=== PATIENT | female | born 1995 | race Caucasian/White ===

== ENCOUNTER 2021-03-02 18:47 | Inpatient (IN) | payer OTHER ==
[~2021-03-02] VITALS: Ht 177.8 cm; Wt 61.2 kg
[2021-03-02 19:38] LABS: HEMOGLOBIN 16.6 gm/dl (12.3-15.3); RED BLOOD COUNT 5.11 M/UL (4.00-5.10); WHITE BLOOD COUNT 8.2 K/UL (4.5-11.0)
[2021-03-02 20:00] LABS: BUN/CREATININE RATIO 10 (0-10)
[2021-03-02] MEDS ORDERED: KLONOPIN1 MG PO (23:44)
[2021-03-03 04:11] LABS: HEMOGLOBIN 14.3 gm/dl (12.3-15.3); RED BLOOD COUNT 4.43 M/UL (4.00-5.10); WHITE BLOOD COUNT 5.5 K/UL (4.5-11.0)
[2021-03-03 04:20] LABS: BUN/CREATININE RATIO 9 (0-10)
[2021-03-03] MEDS ORDERED: PROPRANOLOL HCL60 MG PO (09:18)
[2021-03-03] MEDS ORDERED: SYMBICORT 16010.2 GM INH (09:19)
[2021-03-03] MEDS ORDERED: LIORESAL TAB 1010 MG PO (09:20)
[2021-03-03] MEDS ORDERED: VRAYLAR3 MG PO (09:31)
[2021-03-03] MEDS ORDERED: HYDROCODON-ACE1 EAC6 PO (23:46)
[2021-03-05 07:08] LABS: BUN/CREATININE RATIO 6 (0-10)
[2021-03-08] MEDS ORDERED: ZOFRAN ODT 4 MG4 MG PO (12:02)
[2021-03-08] MEDS ORDERED: CEPHALEXIN500 M1 PO (12:02)
--- NOTE | 2021-03-08 14:25 | NUR ---
Upon discharge the patient stated that she would go downstairs to get better wifi signal to make sure that she could get a ride home. It was witnessed by staff that the patient returned to the floor within approximately 30 minutes. At nearly 1345 the patient pulled the emergency light in the restroom for assistance. Seeing no one else nearby, the patient's primary nurse went to assist and found her lying in the position upon the floor. An COUNTER CHECKER was called, the patient was moved to the bed via draw sheet, an IV was established, and O2 was applied. Within minutes the patient regained consciousness and resumed crying and panicking. 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 She was monitored closely at the bedside until the arrival of her friend. When the patient's transportation arrived she refused to allow staff to transport her via wheelchair, so the primary nurse escorted her as she ambulated with her friend to the vehicle, after removing the IV and O2.
== END 2021-03-08 14:18 | disposition home or self-care (01) | DRG 690 ==
LOC: ER1 18:47 → CDU 22:32 → MED SURG 4 03-03 21:25
PROVIDERS: Emergency Medicine; Internal Medicine; ADMIT Internal Medicine
DX: N30.01 Acute cystitis with hematuria (principal); F68.10 Factitious disorder imposed on self, unspecified; E87.2 Acidosis; B95.61 Methicillin susceptible Staphylococcus aureus infection as the cause of diseases classified elsewhere; F41.9 Anxiety disorder, unspecified; Z90.49 Acquired absence of other specified parts of digestive tract; Z79.899 Other long term (current) drug therapy; F12.10 Cannabis abuse, uncomplicated; R00.0 Tachycardia, unspecified
CPT/HCPCS: 0240U; 36415; 80048; 80053; 81001; 83605; 84703; 85025; 87040; 87077; 87086; 87186; 96374; 96375; 96376; 99285; G0378; J0295; J0692; J0696; J1170; J1885; J2060; J2270; J2310; J2405; J2765; J7030; Q9967